=== PATIENT | female | born 1945 | race Caucasian/White ===

== ENCOUNTER 2019-07-17 15:02 | Outpatient (CLI) | payer MEDICARE, SELFPAY ==
--- NOTE | ~2019-07-17 | MM_ITS ---
EXAMINATION: MM screening didier BI w manda HISTORY: Screening mammogram TECHNIQUE: Craniocaudal and mediolateral oblique 3-D tomosynthesis images were obtained and synthetic 2-D images were generated. CAD analysis was submitted and interpreted. COMPARISON: Comparison to multiple prior studies sequentially, with oldest reviewed study dated 04/13. BREAST PARENCHYMAL COMPOSITION: The breasts are heterogeneously dense, which may obscure small masses . FINDINGS: There is no evidence of suspicious mass, calcification, or architectural distortion to sugg est malignancy in either breast. There has been no suspicious interval change. IMPRESSION: 1. No mammographic evidence of malignancy. 2. Recommend routine screening mammography in one year. BI-RADS Category 1: Negative Reviewed, dictated and finalized at location A. 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
== END 2019-07-17 15:03 | disposition home or self-care (01) ==
LOC: ANHIMG 15:07
PROVIDERS: PCP Family Medicine; Visit Provider Family Medicine
DX: Z12.31 Encounter for screening mammogram for malignant neoplasm of breast (principal)
CPT/HCPCS: 77063; 77067

== ENCOUNTER 2020-08-12 16:05 | Outpatient (CLI) | payer MEDICARE, SELFPAY ==
--- NOTE | ~2020-08-12 | XR_ITS ---
EXAMINATION: XR hand BI arthritis min 3V DATE: 08/12/2020 16:43 INDICATION: Arthritis. TECHNIQUE: 4 views of right hand and 4 views of left hand on a total of 7 radiographs were obtained. COMPARISON: Hand radiographs 11/07/2017 FINDINGS: RIGHT HAND: There is palmar dislocation of first and second proximal phalanges with respect to the me tacarpals. There is radial subluxation of first distal phalanx with respect to the proximal phalanx. No fracture. There is ankylosis of third proximal interphalangeal joint with K wires and figure-of-8 wire. There is radial subluxation of second and fifth distal phalanges with respect to the middle pha langes and ulnar subluxation of third distal phalanx with respect to the middle phalanx. There is mil d osteoarthritis of distal radioulnar joint and first carpometacarpal joint. There is mild osteoarthr itis of fourth metacarpophalangeal joint and some of the interphalangeal joints. There is severe arth ritis of first interphalangeal joint with erosions and osteophytes. There is severe osteoarthritis of second distal interphalangeal joint and moderate osteoarthritis of fifth distal interphalangeal join t. There are erosions at second proximal interphalangeal joint. LEFT HAND: There is palmar subluxation of first proximal phalanx with respect to the metacarpal. Ther e is radial subluxation of third distal phalanx with respect to the middle phalanx. There is severe o steoarthritis of first carpometacarpal joint and third distal interphalangeal joint. There is severe arthritis of triscaphe joint including erosions. There is mild osteoarthritis of some of the other in terphalangeal joints. IMPRESSION: 1. Dislocation of first and second metacarpophalangeal joints and left first metacarpophalangeal join t. 2. Ankylosis of right third interphalangeal joint. 3. 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 Reviewed, dictated and finalized at location A. IMPRESSION: 1. Dislocation of first and second metacarpophalangeal joints and left first me tacarpophalangeal joint. 2. Ankylosis of right third interphalangeal joint. 3. Polyarticular arthritis, likely a combination of rheumatoid arthritis or pso riatic arthritis and osteoarthritis.
[2020-08-12 18:30] LABS: Erythrocyte Sedimentation Rate 23 mm/hr (0-20)
[2020-08-12 19:03] LABS: CRP < 0.5 mg/dL (<1.0); Rheumatoid Factor < 8.6 IU/ML (<12); Uric Acid 4.6 mg/dL (2.5-7.5)
[2020-08-20 13:14] LABS: RNP Antibodies <1.0; SS-A <1.0; SS-B <1.0; Scleroderma 70 Antibody <1.0
[2020-08-20 20:48] LABS: Anti Cyclic Citrullinated Pept <16 Units (<20)
== END 2020-08-12 16:06 | disposition home or self-care (01) ==
PROVIDERS: PCP Family Medicine; Visit Provider Internal Medicine Rheumatology
DX: M19.90 Unspecified osteoarthritis, unspecified site (principal); M19.041 Primary osteoarthritis, right hand; M19.042 Primary osteoarthritis, left hand
CPT/HCPCS: 36415; 73130; 83520; 84550; 85652; 86038; 86039; 86140; 86200; 86225; 86235; 86430

== ENCOUNTER 2020-09-17 10:49 | Outpatient (CLI) | payer MEDICARE, SELFPAY ==
--- NOTE | ~2020-09-17 | MM_ITS ---
EXAMINATION: MM screening didier BI w manda HISTORY: Screening TECHNIQUE: Craniocaudal and mediolateral oblique 3-D tomosynthesis images were obtained and synthetic 2-D images were generated. CAD analysis was submitted and interpreted. COMPARISON: Comparison to multiple prior studies sequentially, with oldest reviewed study dated 06/06. BREAST PARENCHYMAL COMPOSITION: The breasts are extremely dense, which lowers the sensitivity of mamm ography. FINDINGS: There is no evidence of suspicious mass, calcification, or architectural distortion to sugg est malignancy in either breast. There has been no suspicious interval change. IMPRESSION: 1. No mammographic evidence of malignancy. 2. Recommend routine screening mammography in one year. BI-RADS Category 1: Negative Reviewed, dictated and finalized at location A.
== END 2020-09-17 10:50 | disposition home or self-care (01) ==
PROVIDERS: PCP Family Medicine; Visit Provider Family Medicine
DX: Z12.31 Encounter for screening mammogram for malignant neoplasm of breast (principal)
CPT/HCPCS: 77063; 77067

== ENCOUNTER 2020-12-10 10:09 | Outpatient (RCR) | payer MEDICARE, SELFPAY ==
[2020-10-05 12:39] LABS: Basophils Absolute Auto 0.1 K/mm3 (0.0-0.1); Basophils Percent Auto 0.8 % (0.2-1.2); Eosinophils Absolute Auto 0.1 K/mm3 (0-0.3); Eosinophils Percent Auto 1.1 % (0-4.4); Hemoglobin 12.5 g/dL (12.0-15.0); Immature Granulocyte Absolute 0.02 K/mm3 (0.00-0.031); Immature Granulocyte Percent A 0.3 % (0-0.5); Lymphocytes Absolute Auto 1.84 K/mm3 (0.9-3.2); Mean Corpuscular HGB Conc 32.1 g/dl (32-36); Mean Corpuscular Hemoglobin 31.6 pg (26-34); Mean Corpuscular Volume 98.7 fl (80-100); Mean Platelet Volume 11.2 fl (7.4-10.4); Monocytes Absolute Auto 0.6 K/mm3 (0.1-0.6); Monocytes Percent Auto 8.2 % (2.6-8.5); Neutrophils Absolute Auto 4.8 K/mm3 (1.3-6.7); Neutrophils Percent Auto 64.6 % (45.5-73.1); Platelet Count Result 183 k/mm3 (150-375); Red Blood Count 3.95 M/mm3 (4.2-5.4); Red Cell Distribution Width 12.2 % (11.5-14.5); White Blood Count 7.4 K/mm3 (4.5-10.0)
[2020-10-05 13:03] LABS: Anion Gap 8 mmol/L (8-16); Blood Urea Nitrogen 18 mg/dL (7-17); Calcium 8.9 mg/dL (8.4-10.2); Carbon Dioxide 27 mmol/L (22-30); Chloride 105 mmol/L (98-107); Estimated Glomerular Filt Rate > 60; Glucose 93 mg/dL (65-105); Potassium 4.2 mmol/L (3.4-5.0); Sodium 140 mmol/L (137-145)
[2020-10-05 15:06] LABS: Hepatitis B Surface Antigen Negative (Negative)
[2020-10-05 15:27] LABS: Hepatitis B Surface Anti Res Positive; Hepatitis C Virus Antibody Negative (Negative)
[2020-10-07 14:03] LABS: Hepatitis B DNA PCR <1.00 Log IU/mL; Hepatitis B DNA PCR <10 IU/mL; Hepatitis C RNA, Quant PCR <15 IU/mL
[2020-10-07 19:34] LABS: Hepatitis B Core Ab Total Nonreactive (Nonreactive)
[2020-10-07 23:39] LABS: NIL 0.01 IU/mL; Quantiferon TB Plus, 1T NEGATIVE (NEGATIVE); TB2-NIL 0.01 IU/mL
[2020-10-19 18:53] LABS: ALT 31 U/L (6-29); Alpha-2-Macroglobulin 257 mg/dL (106-279); Apolipoprotein A1 168 mg/dL (101-198); Fibrosis Score 0.36; Fibrosis Stage F1-F2; GGT 28 U/L (3-65); Haptoglobin 79 mg/dL (43-212); Necroinflammat Act Grade A0; Total Bilirubin 0.4 mg/dL (0.2-1.2)
[2020-12-10 10:33] LABS: Alanine Aminotransferase 22 U/L (4-35); Albumin Level 4.4 g/dL (3.5-5.1); Alkaline Phosphatase 59 U/L (38-126); Anion Gap 10 mmol/L (8-16); Aspartate Amino Transferase 31 U/L (14-36); Basophils Percent Auto 0.5 % (0.2-1.2); Bilirubin,Total 0.6 mg/dL (0.2-1.3); Blood Urea Nitrogen 20 mg/dL (7-17); Calcium 9.6 mg/dL (8.4-10.2); Carbon Dioxide 26 mmol/L (22-30); Chloride 101 mmol/L (98-107); Eosinophils Absolute Auto 0.1 K/mm3 (0-0.3); Eosinophils Percent Auto 0.6 % (0-4.4); Estimated Glomerular Filt Rate > 60; Glucose 89 mg/dL (65-110); Hematocrit 38.7 % (37.0-47.0); Hemoglobin 12.4 g/dL (12.0-15.0); Immature Granulocyte Absolute 0.01 K/mm3 (0.00-0.031); Immature Granulocyte Percent A 0.1 % (0-0.5); Lymphocytes Absolute Auto 1.77 K/mm3 (0.9-3.2); Lymphocytes Percent Auto 22.7 % (18.3-44.2); Mean Corpuscular Hemoglobin 31.3 pg (26-34); Mean Corpuscular Volume 97.7 fl (80-100); Mean Platelet Volume 10.5 fl (7.4-10.4); Monocytes Absolute Auto 0.6 K/mm3 (0.1-0.6); Neutrophils Absolute Auto 5.3 K/mm3 (1.3-6.7); Neutrophils Percent Auto 68.1 % (45.5-73.1); Platelet Count Result 210 k/mm3 (150-375); Potassium 4.1 mmol/L (3.4-5.0); Red Blood Count 3.96 M/mm3 (4.2-5.4); Red Cell Distribution Width 13.2 % (11.5-14.5); Sodium 137 mmol/L (137-145); White Blood Count 7.8 K/mm3 (4.5-10.0)
== END 2021-01-03 23:59 | disposition home or self-care (01) ==
LOC: ANHLAB 10:09
PROVIDERS: PCP Family Medicine; Visit Provider Internal Medicine Rheumatology
DX: Z51.81 Encounter for therapeutic drug level monitoring (principal); Z11.59 Encounter for screening for other viral diseases; Z79.899 Other long term (current) drug therapy
CPT/HCPCS: 36415; 80048; 80076; 81596; 85025; 86480; 86704; 86706; 86803; 87340; 87517; 87522

== ENCOUNTER 2021-08-16 09:14 | Outpatient (CLI) | payer MEDICARE, SELFPAY ==
[2021-08-16 09:48] LABS: Basophils Percent Auto 0.6 % (0.2-1.2); Eosinophils Absolute Auto 0.1 K/mm3 (0-0.3); Eosinophils Percent Auto 0.9 % (0-4.4); Hematocrit 37.7 % (37.0-47.0); Hemoglobin 12.1 g/dL (12.0-15.0); Immature Granulocyte Absolute 0.03 K/mm3 (0.00-0.031); Immature Granulocyte Percent A 0.4 % (0-0.5); Lymphocytes Absolute Auto 1.42 K/mm3 (0.9-3.2); Lymphocytes Percent Auto 21.3 % (18.3-44.2); Mean Corpuscular HGB Conc 32.1 g/dl (32-36); Mean Corpuscular Hemoglobin 32.4 pg (26-34); Mean Corpuscular Volume 100.8 fl (80-100); Monocytes Absolute Auto 0.6 K/mm3 (0.1-0.6); Monocytes Percent Auto 8.7 % (2.6-8.5); Neutrophils Absolute Auto 4.6 K/mm3 (1.3-6.7); Neutrophils Percent Auto 68.1 % (45.5-73.1); Platelet Count Result 239 k/mm3 (150-375); Red Blood Count 3.74 M/mm3 (4.2-5.4); Red Cell Distribution Width 13.7 % (11.5-14.5); White Blood Count 6.7 K/mm3 (4.5-10.0)
[2021-08-16 10:01] LABS: Alanine Aminotransferase 18 U/L (4-35); Albumin Level 4.4 g/dL (3.5-5.1); Alkaline Phosphatase 51 U/L (38-126); Anion Gap 5 mmol/L (8-16); Aspartate Amino Transferase 28 U/L (14-36); Bilirubin,Total 0.6 mg/dL (0.2-1.3); Blood Urea Nitrogen 15 mg/dL (7-17); Calcium 8.9 mg/dL (8.4-10.2); Carbon Dioxide 30 mmol/L (22-30); Chloride 103 mmol/L (98-107); Cholesterol 216 mg/dL (0-200); Estimated Glomerular Filt Rate > 60; Glucose 87 mg/dL (65-110); HDL Direct 53 mg/dL; Potassium 4.1 mmol/L (3.4-5.0); Sodium 138 mmol/L (137-145); Triglycerides 94 mg/dL (<150)
[2021-08-16 10:12] LABS: LDL Cholesterol Direct 113 mg/dL
[2021-08-16 10:22] LABS: Free T4 Free Thyroxine 1.05 ng/mL (0.78-2.19)
== END 2021-08-16 09:15 | disposition home or self-care (01) ==
LOC: ANHLAB 09:16
PROVIDERS: PCP Family Medicine; Visit Provider Physician Assistant
DX: F32.9 Major depressive disorder, single episode, unspecified (principal); M05.741 Rheumatoid arthritis with rheumatoid factor of right hand without organ or systems involvement; M05.742 Rheumatoid arthritis with rheumatoid factor of left hand without organ or systems involvement; E03.9 Hypothyroidism, unspecified; Z51.81 Encounter for therapeutic drug level monitoring; Z79.899 Other long term (current) drug therapy
CPT/HCPCS: 36415; 80053; 80061; 84439; 84443; 85025

== ENCOUNTER 2021-08-19 10:06 | Outpatient (CLI) | payer MEDICARE, SELFPAY ==
[2021-08-23 19:58] LABS: Red Blood Cell Folate 520 ng/mL RBC (>280)
== END 2021-08-19 10:07 | disposition home or self-care (01) ==
LOC: ANHLAB 10:07
PROVIDERS: PCP Family Medicine; Visit Provider Physician Assistant
DX: Z51.81 Encounter for therapeutic drug level monitoring (principal); Z79.899 Other long term (current) drug therapy
CPT/HCPCS: 36415; 82607; 82747

== ENCOUNTER 2021-10-06 09:53 | Outpatient (CLI) | payer MEDICARE, SELFPAY ==
--- NOTE | ~2021-10-06 | MM_ITS ---
EXAMINATION: MM screening didier BI w manda HISTORY: Screening mammogram TECHNIQUE: Craniocaudal and mediolateral oblique 3-D tomosynthesis images were obtained and synthetic 2-D images were generated. CAD analysis was submitted and interpreted. COMPARISON: No prior mammogram is available for comparison at this institution. BREAST PARENCHYMAL COMPOSITION: The breasts are extremely dense, which lowers the sensitivity of mamm ography. FINDINGS: There is no evidence of suspicious mass, calcification, or architectural distortion to sugg est malignancy in either breast. There has been no suspicious interval change. IMPRESSION: 1. No mammographic evidence of malignancy. 2. Recommend routine screening mammography in one year. BI-RADS Category 1: Negative Reviewed, dictated and finalized at location A.
--- NOTE | ~2021-10-06 | DEXA_ITS ---
Bone Density Report Name: KIP KAY Age: 75 Sex: Female Ethnicity: White Date of : 1945 Indication: osteopenia; parental hip fracture; height loss; rheumatoid arthritis; postmenopausal Referring Provider: KRISTEN HOFFMAN Study: Bone densitometry was performed. Exam Date: October 06, 2021 Accession number: [id number] Bone Density: Region BMD T-score Z-score Classification AP Spine(L1-L4) 0.999 -0.4 1.9 Normal Femoral Neck (Left) 0.665 -1.7 0.4 Osteopenia Total Hip (Left) 0.733 -1.7 0.0 Osteopenia Femoral Neck (Right) 0.643 -1.9 0.2 Osteopenia Total Hip (Right) 0.739 -1.7 0.1 Osteopenia Total Hip Mean 0.736 -1.7 0.1 Osteopenia World Health Organization criteria for BMD impression classify patients as: Normal (T-score at or above -1.0), Osteopenia (T-score between -1.0 and -2.5), or Osteoporosis (T-score at or below -2.5). 10-year Fracture Risk(1): Major Osteoporotic Fracture 24% Hip Fracture 13% Reported Risk Factors: [place] (), Neck BMD=0.643, BMI=21.1, parental fracture, rheumatoid arthritis (1) FRAX(R) Version 3.08. Fracture probability calculated for an untreated patient. Fracture probability may be lower if the patient has received treatment. Previous Exams: Region Exam Age BMD T-score BMD Change BMD Change Date g/cm2 vs Baseline vs Previous AP Spine (L1-L4) 10/06/2021 75 0.999 -0.4 0.093 (10.2%)# -0.002 (-0.2%) 08/05/2015 69 1.001 -0.4 0.095 (10.5%)* 0.095 (10.5%)* 03/25/2012 66 0.906 -1.3 Total Hip(Left) 10/06/2021 75 0.733 -1.7 0.016 (2.3%)# -0.043 (-5.6%) 08/05/2015 69 0.776 -1.4 0.059 (8.3%)* 0.059 (8.3%)* 03/25/2012 66 0.717 -1.8 Total Hip(Right) 10/06/2021 75 0.739 -1.7 -0.015 (-1.9%) -0.079 (-9.7%) 08/05/2015 69 0.818 -1.0 0.065 (8.6%)* 0.065 (8.6%)* 03/25/2012 66 0.754 -1.5 *Denotes significance at 95% confidence level, LSC for AP Spine = 0.022 g/cm2, LSC for Total Hip = 0.027 g/cm2 # Denotes dissimilar scan types or analysis methods Clinical Information Provided by Patient: Parent has had a hip fracture Has rheumatoid arthritis Has used the following medications: Vitamin D, Calcium Patient maximum height was 64 Menopause Age: 54 Onset of menses at age 15 Number of children 0 Impression: The patient has low bone mass, based on the Right Femoral Neck T-score. The patient has an estimated ten-year risk of hip fracture of 13
== END 2021-10-06 09:54 | disposition home or self-care (01) ==
PROVIDERS: PCP Family Medicine; Visit Provider Physician Assistant
DX: Z12.31 Encounter for screening mammogram for malignant neoplasm of breast (principal); M81.0 Age-related osteoporosis without current pathological fracture; M85.852 Other specified disorders of bone density and structure, left thigh; F32.9 Major depressive disorder, single episode, unspecified
CPT/HCPCS: 77063; 77067; 77080

== ENCOUNTER 2022-08-08 08:04 | Outpatient (CLI) | payer MEDICARE, SELFPAY ==
[2022-08-08 19:07] LABS: Basophils Absolute Auto 0.1 K/mm3 (0.0-0.1); Basophils Percent Auto 0.8 % (0.2-1.2); Eosinophils Percent Auto 0.6 % (0-4.4); Hematocrit 39.8 % (37.0-47.0); Hemoglobin 12.4 g/dL (12.0-15.0); Immature Granulocyte Absolute 0.02 K/mm3 (0.00-0.031); Immature Granulocyte Percent A 0.3 % (0-0.5); Lymphocytes Absolute Auto 2.05 K/mm3 (0.9-3.2); Lymphocytes Percent Auto 31.8 % (18.3-44.2); Mean Corpuscular HGB Conc 31.2 g/dl (32-36); Mean Corpuscular Hemoglobin 31.3 pg (26-34); Mean Corpuscular Volume 100.5 fl (80-100); Mean Platelet Volume 10.6 fl (7.4-10.4); Monocytes Absolute Auto 0.5 K/mm3 (0.1-0.6); Monocytes Percent Auto 7.8 % (2.6-8.5); Neutrophils Absolute Auto 3.8 K/mm3 (1.3-6.7); Neutrophils Percent Auto 58.7 % (45.5-73.1); Platelet Count Result 266 k/mm3 (150-375); Red Blood Count 3.96 M/mm3 (4.2-5.4); Red Cell Distribution Width 13.8 % (11.5-14.5); White Blood Count 6.5 K/mm3 (4.5-10.0)
[2022-08-08 19:09] LABS: Alanine Aminotransferase 22 U/L (6-35); Albumin Level 4.5 g/dL (3.5-5.1); Alkaline Phosphatase 60 U/L (38-126); Anion Gap 10 mmol/L (8-16); Aspartate Amino Transferase 26 U/L (14-36); Bilirubin,Total 0.6 mg/dL (0.2-1.3); Blood Urea Nitrogen 12 mg/dL (7-17); Calcium 8.8 mg/dL (8.4-10.2); Carbon Dioxide 26 mmol/L (22-30); Chloride 103 mmol/L (98-107); Cholesterol 225 mg/dL (0-200); Estimated Glomerular Filt Rate > 60; Glucose 81 mg/dL (65-110); HDL Direct 45 mg/dL; Potassium 4.3 mmol/L (3.4-5.0); Sodium 139 mmol/L (137-145); Triglycerides 112 mg/dL (<150)
[2022-08-08 19:20] LABS: LDL Cholesterol Direct 136 mg/dL
[2022-08-08 19:29] LABS: Free T4 Free Thyroxine 1.15 ng/mL (0.78-2.19)
== END 2022-08-08 08:05 | disposition home or self-care (01) ==
LOC: ANHGOSHLAB 08:05
PROVIDERS: PCP Emergency Medicine; Visit Provider Emergency Medicine
DX: E03.9 Hypothyroidism, unspecified (principal); Z79.899 Other long term (current) drug therapy
CPT/HCPCS: 36415; 80053; 80061; 84439; 84443; 85025

== ENCOUNTER 2022-12-14 10:19 | Outpatient (CLI) | payer MEDICARE, SELFPAY ==
--- NOTE | ~2022-12-14 | MM_ITS ---
EXAMINATION: MM screening didier BI w manda HISTORY: Screening mammogram TECHNIQUE: Craniocaudal and mediolateral oblique 3-D tomosynthesis images were obtained and synthetic 2-D images were generated. Bilateral rotated lateral CC views. CAD analysis was submitted and interp reted. COMPARISON: 10/06/2021, 09/17/2020, 07/17/2019 bilateral screening mammogram examinations BREAST PARENCHYMAL COMPOSITION: The breasts are extremely dense, which lowers the sensitivity of mamm ography. FINDINGS: There is no evidence of suspicious mass, calcification, or architectural distortion to sugg est malignancy in either breast. There has been no suspicious interval change. IMPRESSION: 1. No mammographic evidence of malignancy. 2. Recommend routine screening mammography in one year. BI-RADS Category 1: Negative Reviewed, dictated and finalized at location A.
== END 2022-12-14 10:20 | disposition home or self-care (01) ==
PROVIDERS: PCP Emergency Medicine; Visit Provider Emergency Medicine
DX: Z12.31 Encounter for screening mammogram for malignant neoplasm of breast (principal)
CPT/HCPCS: 77063; 77067

== ENCOUNTER 2023-10-02 07:52 | Outpatient (CLI) | payer MEDICARE, SELFPAY ==
[2023-10-02 18:45] LABS: Basophils Absolute Auto 0.1 K/mm3 (0.0-0.1); Basophils Percent Auto 0.8 % (0.2-1.2); Eosinophils Absolute Auto 0.1 K/mm3 (0-0.3); Eosinophils Percent Auto 0.9 % (0-4.4); Hematocrit 41.1 % (37.0-47.0); Immature Granulocyte Absolute 0.02 K/mm3 (0.00-0.031); Immature Granulocyte Percent A 0.3 % (0-0.5); Lymphocytes Absolute Auto 1.61 K/mm3 (0.9-3.2); Lymphocytes Percent Auto 24.9 % (18.3-44.2); Mean Corpuscular HGB Conc 31.6 g/dl (32-36); Mean Corpuscular Hemoglobin 31.7 pg (26-34); Mean Corpuscular Volume 100.2 fl (80-100); Mean Platelet Volume 10.3 fl (7.4-10.4); Monocytes Absolute Auto 0.5 K/mm3 (0.1-0.6); Monocytes Percent Auto 7.6 % (2.6-8.5); Neutrophils Absolute Auto 4.2 K/mm3 (1.3-6.7); Neutrophils Percent Auto 65.5 % (45.5-73.1); Platelet Count Result 240 k/mm3 (150-375); Red Cell Distribution Width 12.9 % (11.5-14.5); White Blood Count 6.5 K/mm3 (4.5-10.0)
[2023-10-02 18:54] LABS: Alanine Aminotransferase 24 U/L (6-35); Albumin Level 4.5 g/dL (3.5-5.1); Alkaline Phosphatase 50 U/L (38-126); Anion Gap 5 mmol/L (4-12); Aspartate Amino Transferase 43 U/L (14-36); Bilirubin,Total 0.7 mg/dL (0.2-1.3); Blood Urea Nitrogen 23 mg/dL (7-17); Calcium 9.2 mg/dL (8.4-10.2); Carbon Dioxide 28 mmol/L (22-30); Chloride 105 mmol/L (98-107); Cholesterol 218 mg/dL (0-200); Estimated Glomerular Filt Rate > 60; Glucose 77 mg/dL (65-110); HDL Direct 53 mg/dL; Potassium 4.4 mmol/L (3.4-5.0); Sodium 138 mmol/L (137-145); Triglycerides 87 mg/dL (<150)
[2023-10-02 19:04] LABS: LDL Cholesterol Direct 133 mg/dL
[2023-10-02 19:27] LABS: Total Triiodothyronine (T3) 1.03 NG/ML (0.97-1.69)
[2023-10-02 19:37] LABS: Free T4 Free Thyroxine 0.98 ng/mL (0.78-2.19)
== END 2023-10-02 07:53 | disposition home or self-care (01) ==
PROVIDERS: PCP Emergency Medicine; Visit Provider Emergency Medicine
DX: E03.9 Hypothyroidism, unspecified (principal); E78.5 Hyperlipidemia, unspecified; Z79.899 Other long term (current) drug therapy
CPT/HCPCS: 36415; 80053; 80061; 84439; 84443; 84480; 85025

== ENCOUNTER 2024-01-09 11:30 | Outpatient (CLI) | payer MEDICARE, SELFPAY ==
--- NOTE | ~2024-01-09 | MM_ITS ---
EXAMINATION: MM screening didier BI w manda HISTORY: Screening TECHNIQUE: Craniocaudal and mediolateral oblique 3-D tomosynthesis images were obtained and synthetic 2-D images were generated. CAD analysis was submitted and interpreted. COMPARISON: Comparison to multiple prior studies sequentially, with oldest reviewed study dated 10/2018. BREAST PARENCHYMAL COMPOSITION: Dense: The breasts are extremely dense, which lowers the sensitivity of mammography. FINDINGS: There is no evidence of suspicious mass, calcification, or architectural distortion to sugg est malignancy in either breast. There has been no suspicious interval change. IMPRESSION: 1. No mammographic evidence of malignancy. 2. Recommend routine screening mammography in one year. BI-RADS Category 1: Negative Reviewed, dictated and finalized at location B.
== END 2024-01-09 11:31 | disposition home or self-care (01) ==
PROVIDERS: PCP Emergency Medicine; Visit Provider Emergency Medicine
DX: Z12.31 Encounter for screening mammogram for malignant neoplasm of breast (principal)
CPT/HCPCS: 77063; 77067

== ENCOUNTER 2024-07-31 08:12 | Outpatient (CLI) | payer MEDICARE, SELFPAY ==
--- OUTSIDE RECORDS SUMMARY | 2024-07-31 08:18 | XMS_ITS | Clinical Summary ---
Author Organization [facility] [employer] Address [address] 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 This disclosure is being madepursuant to the Care Everywhere program and may not contain all information available regarding this patient. Last updated 18.[facility] [employer] Allergies No known active allergies Medications * Be aware that medications may not be up to date on this document. Alwaysverify current medications with the patient. Medication Sig Dispensed Refills Start Date End Date Status methotrexate 2.5 MG tablet Take 1 (one) tablet by mouth every 7 days Active folic acid (Folvite) 1 MG tablet Take 1 (one) tablet by mouth once daily Active Active Problems Problem Noted Date Diagnosed Date Fall 08/30/2023 Scalp laceration 08/30/2023 Immunizations Name Administration Dates Next Due TDAP (7yrs+) 08/30/2023(Deferred: Patient Ref used - pt says up to date) Social History Tobacco Use Types Packs/Day Years Used Date Smoking Tobacco: Never Assessed Sex and Gender Information Value Date Recorded Sex Assigned at Not on file Gender Identity Not on file Sexual Orientation Not on file Last Filed Vital Signs Vital Sign Reading Time Taken Comments Blood Pressure 132/86 08/30/2023 8:00 PM CDT Pulse 109 08/30/2023 8:00 PM CDT Temperature 36.8 C (98.2 F) 08/30/2023 6:32 PM CDT Respiratory Rate 11 08/30/2023 8:00 PM CDT Oxygen Saturation 96% 08/30/2023 8:00 PM CDT Inhaled Oxygen Concentration - - Weight - - Height - - Body Mass Index - - Plan of Treatment Health Maintenance Due Date Last Done Comments BONE DENSITY TESTING 1945 HEPATITIS C SCREENING 11/06/1965 DTAP/TDAP/TD VACCINES (1 - Tdap) 11/10/1966 PNEUMOCOCCAL VACCINE 50+ (1 of 1 - PCV) 11/10/1997 ZOSTER VACCINE (1 of 2) 11/10/1997 Respiratory Syncytial Virus (RSV) Vaccine Pt: or over 60 yrs (1 - 1-dose 75+ series) 11/10/2022 COVID-19 VACCINE (2023-2 5 season) 2024 INFLUENZA VACCINE (#1) 2024 DEPRESSION SCREENING 05/14/2024 MEDICARE AWV CALENDAR YEAR 2024 HEPATITIS B VACCINE Aged Out No longe r eligible based on patient's age to complete this topic HIB VACCINE Aged Out No longer eligi ble based on patient's age to complete this topic HPV VACCINE Aged Out No longer eligi ble based on patient's age to complete this topic MENINGOCOCCAL (Group B) VACC INE SHARED DECISION-MAKING Aged Out No longer eligibl e based on patient's age to complete this topic MENINGOCOCCAL GROUPS A/C/Y/W VACCINE Aged Out No longer eligible b ased on patient's age to complete this topic
[2024-07-31 14:47] LABS: Alanine Aminotransferase 26 U/L (6-35); Albumin Level 4.5 g/dL (3.5-5.1); Alkaline Phosphatase 57 U/L (38-126); Anion Gap 8 mmol/L (4-12); Aspartate Amino Transferase 46 U/L (14-36); Bilirubin,Total 0.7 mg/dL (0.2-1.3); Blood Urea Nitrogen 19 mg/dL (7-17); Calcium 9.3 mg/dL (8.4-10.2); Carbon Dioxide 28 mmol/L (22-30); Chloride 103 mmol/L (98-107); Cholesterol 235 mg/dL (0-200); Estimated Glomerular Filt Rate > 60; Glucose 78 mg/dL (65-110); HDL Direct 57 mg/dL; Potassium 4.5 mmol/L (3.4-5.0); Sodium 139 mmol/L (137-145); Triglycerides 92 mg/dL (<150)
[2024-07-31 15:02] LABS: LDL Cholesterol Direct 134 mg/dL
[2024-07-31 16:10] LABS: Free T4 Free Thyroxine 1.11 ng/dL (0.78-2.19)
== END 2024-07-31 08:13 | disposition home or self-care (01) ==
LOC: ANHGOSHLAB 08:15
PROVIDERS: PCP Family Medicine; Visit Provider Nurse Practitioner
DX: E03.9 Hypothyroidism, unspecified (principal); E78.5 Hyperlipidemia, unspecified
CPT/HCPCS: 36415; 80053; 80061; 84439; 84443

== ENCOUNTER 2024-09-25 18:56 | Emergency (ER) | payer MEDICARE, SELFPAY ==
--- OUTSIDE RECORDS SUMMARY | 2024-09-25 18:58 | XMS_ITS | Clinical Summary ---
Author Organization [facility] [employer] Address [address] [place] [address] Care Team Providers Care Jack Spinner Name Role Phone Unavailable Primary Care Provider Unavailabl e Source Comments [facility],non-owned Affiliates and Associated Physician Practices is amultiple site organization consisting of ambulatory clinics and hospital sitesin [place], [place], [place] and [place]. This disclosure is being madepursuant to the Care Everywhere program and may not contain all information available regarding this patient. Last updated 18.[facility] [employer] Allergies No known active allergies Medications * Be aware that medications may not be up to date on this document. Alwaysverify current medications with the patient. methotrexate 2.5 MG tablet Take 1 (one) tablet by mouth every 7 days Active folic acid (Folvite) 1 MG tablet Take 1 (one) tablet by mouth once daily Active Active Problems Problem Noted Date Diagnosed Date Fall 08/30/2023 Scalp laceration 08/30/2023 Immunizations Immunization Administration Dates Next Due TDAP (7yrs+) 08/30/2023(Deferred: Patient Ref used - pt says up to date) Social History Tobacco Use Types Packs/Day Years Used Date Smoking Tobacco: Never Assessed Comments Unknown Sex and Gender Information Value Date Recorded Sex Assigned at Not on file Legal Sex Female 6:32 PM CDT Gender Identity Not on file Sexual Orientation [...] - 1-dose 75+ series) 11/10/2022 COVID-19 VACCINE ( - 2023-2 5 season) 2024 DEPRESSION SCREENING 05/14/2024 MEDICARE AWV CALENDAR YEAR 2024 INFLUENZA VACCINE (Season Ended) 2025 HEPATITIS B VACCINE Aged Out No longe [...] on patient's age to [place] [address] AETNA MEDICARE ADV
[2024-09-25 19:16] VITALS: BP 147/93; PULSE 82; RESP 20; TEMP 36.7; O2SAT 100
--- NOTE | 2024-09-25 20:34 | ED.GENADULT ---
HPI - General Adult General Chief complaint: Skin/Abscess/Foreign Body Stated complaint: Bleeding lower lip -no known injury Time Seen by Provider: 09/25/24 20:00 History of Present Illness HPI narrative: Patient is a 78-year-old female who presents ER with bleeding from her left lower lip. She was at a local [employer] and had eaten some bread but does not recall biting her lip. She started bleeding and it would not stop. She is not on blood thinning medication. No difficulty breathing or swallowing. Related Data Home Medications Medication Instructions Recorded Confirmed Last Taken Type calcium carbonate (Calcium 600) 600 mg PO DAILY 01/24/22 08/01/24 Unknown History cholecalciferol (vitamin D3) 50 50 mcg PO DAILY 01/24/22 08/01/24 Unknown History mcg (2,000 unit) capsule (Vitamin D3) ferrous sulfate 325 mg (65 mg 325 mg PO DAILY 01/24/22 08/01/24 Unknown History iron) tablet magnesium 250 mg tablet 250 mg PO DAILY 01/24/22 08/01/24 Unknown History omega 2-tmg-pzb-fish oil 1,200 mg cap PO 01/24/22 08/01/24 Unknown History (144 mg-216 mg) capsule (Fish Oil) omeprazole 20 mg tablet,delayed 20 mg PO DAILY 01/24/22 08/01/24 Unknown History release lactobacillus combination no.4 3 6,000 mmu cells PO DAILY 08/01/24 08/01/24 Unknown History billion cell capsule (Probiotic) mecobalamin (vitamin B12) 500 mcg mcg PO 08/01/24 08/01/24 Unknown History chewable tablet multivitamin 1 tablet PO DAILY 08/01/24 08/01/24 Unknown History progesterone micronized 100 mg 0.5 mg PO QAM 08/01/24 08/01/24 Unknown History capsule Allergies Allergy/AdvReac Type Severity Reaction Status Date / Time No Known Allergies Allergy Verified 08/01/24 10:47 Review of Systems Constitutional: Constitutional: Reports no additional constitutional complaints ENT: Reports system reviewed and no additional complaints, except as documented [facility] Past Medical History Medical History (Updated 09/25/24 @ 20:45 by Tu Ojeda MD) Rheumatoid arthritis involving both hands with positive rheumatoid factor Hypothyroidism Hyperlipidemia Major depressive disorder, single episode, unspecified Family History Family History Father Diabetes mellitus Hypertension Family history of cardiovascular disease Mother Hypertension Family history of cardiovascular disease Grandparent Cerebrovascular accident Social History Social History Social History: Caffeine-coffee Smoking status: Former smoker Alcohol intake: current Alcohol use details: occasionally Substance use: never Substance use type: does not use Lack of Transportation: No Lack of Food: Never True Current Housing: I Have Housing Concerned About Future Housing: No Difficulty Paying Gas/Electric Bills: No Difficulty Paying for Meds: No Currently Unemployed: No Education: Bachelor's Degree Difficulty w/ Childcare or Family Care: No Exam Narrative: GENERAL: Well-appearing, well-nourished, and in no acute distress. HEAD: Normocephalic, atraumatic. ENT: Mucous membranes moist. A left lower lip intraoral aspect with 6 cm healing abrasion. Normal dentition without bleeding or abscess. NECK: Supple. NEURO: Alert and oriented x3. PSYCH: Normal mood and affect. Course Course Emergency Course: Patient given reassurance. No bleeding this time. Discharge home. Vital Signs Vital signs: Vital Signs Temperature 98.0 F 09/25/24 19:16 Pulse Rate 82 09/25/24 19:16 Respiratory Rate 09/25/24 19:16 Blood Pressure 147/93 H 09/25/24 19:16 Pulse Oximetry 100 09/25/24 19:16 Oxygen Delivery Room Air 09/25/24 19:16 Temperature 98.0 F 09/25/24 19:16 Pulse Rate 82 09/25/24 19:16 Respiratory Rate 09/25/24 19:16 Blood Pressure 147/93 H 09/25/24 19:16 Pulse Oximetry 100 09/25/24 19:16 Oxygen Delivery Room Air 09/25/24 19:16 Medical Decision Making Vital Signs Vital Signs: Vital Signs Temperature 98.0 F 09/25/24 19:16 Pulse Rate 82 09/25/24 19:16 Respiratory Rate 09/25/24 19:16 Blood Pressure 147/93 H 09/25/24 19:16 Pulse Oximetry 100 09/25/24 19:16 Oxygen Delivery Room Air 09/25/24 19:16 Temperature 98.0 F 09/25/24 19:16 Pulse Rate 82 09/25/24 19:16 Respiratory Rate 20 09/25/24 19:16 Blood Pressure 147/93 H 09/25/24 19:16 Pulse Oximetry 100 09/25/24 19:16 Oxygen Delivery Room Air 09/25/24 19:16 Discharge Plan Discharge Clinical Impression: Abrasion of lip Patient Disposition: Home Condition: Stable Instructions: Abrasion (ED) Additional Instructions: Return ER if you suffered a new injury, you have recurrence of bleeding, you have additional concerns. Patient Language: Occitan Prescriptions: No Action multivitamin Tablet 1 tablet PO DAILY Probiotic 3 billion cell capsule 6,000 mmu cells PO DAILY Rx Instructions: administer with a meal mecobalamin (vitamin B12) 500 mcg tablet,chewable PO progesterone micronized 100 mg capsule 0.5 mg PO QAM Rx Instructions: before bed atorvastatin [Lipitor] 20 mg tablet 20 mg PO QHS Qty: 90 1RF oxybutynin chloride 5 mg tablet extended release 24hr 5 mg PO DAILY Qty: 90 1RF calcium carbonate [Calcium 600] 600 mg calcium (1,500 mg) tablet 600 mg PO DAILY omega 4-qtr-doz-fish oil [Fish Oil] 1,200 (144-216) mg capsule PO ferrous sulfate 325 mg (65 mg iron) tablet 325 mg PO DAILY magnesium 250 mg tablet 250 mg PO DAILY omeprazole 20 mg tablet,delayed release (DR/EC) 20 mg PO DAILY cholecalciferol (vitamin D3) [Vitamin D3] 50 mcg (2,000 unit) capsule 50 mcg PO DAILY folic acid 1 mg tablet 1 mg PO DAILY Qty: 90 3RF alendronate 35 mg tablet 35 mg PO WEEKLY Qty: 12 3RF mometasone 0.1 % cream 1 applic topical DAILY PRN (Reason: rash) Qty: 15 0RF citalopram 20 mg tablet See Rx Instructions .ROUTE .COMPLEX Qty: 90 1RF Dose Instruction: TAKE 1 TABLET DAILY Rx Instructions: TAKE 1 TABLET DAILY levothyroxine 75 mcg tablet See Rx Instructions .ROUTE .COMPLEX Qty: 90 1RF Dose Instruction: TAKE 1 TABLET BY MOUTH DAILY Rx Instructions: TAKE 1 TABLET BY MOUTH DAILY methotrexate sodium 2.5 mg tablet See Rx Instructions .ROUTE .COMPLEX Qty: 65 1RF Dose Instruction: TAKE 5 TABLETS BY MOUTH ONCE WEEKLY Rx Instructions: TAKE 5 TABLETS BY MOUTH ONCE WEEKLY Follow-up/Referrals: Dee Sam, [Primary Care Provider] - 1 Week
--- OUTSIDE RECORDS SUMMARY | 2024-09-25 20:49 | XMS_ITS | Clinical Summary ---
Author Organization [facility] [employer] Address [address] [place] [address] Care Team Providers Care Leather Belt Loop Cutter Name Role Phone Unavailable Primary Care Provider Unavailabl e Source Comments [facility],non-owned Affiliates and Associated Physician Practices is amultiple site organization consisting of ambulatory clinics and hospital sitesin [place], [place], [place] and [place]. This disclosure is being madepursuant to the Care Everywhere program and may not contain all information available regarding this patient. Last updated 18.[facility] [employer] Allergies No known active allergies Medications * [...] patient's age to complete [place] [address] AETNA MEDICARE ADV
== END 2024-09-25 21:16 | disposition home or self-care (01) ==
PROVIDERS: Emergency Provider Emergency Medicine; PCP Family Medicine
DX: S00.511A Abrasion of lip, initial encounter (principal); E03.9 Hypothyroidism, unspecified; E78.5 Hyperlipidemia, unspecified; M05.841 Other rheumatoid arthritis with rheumatoid factor of right hand; M05.842 Other rheumatoid arthritis with rheumatoid factor of left hand; Z87.891 Personal history of nicotine dependence; X58.XXXA Exposure to other specified factors, initial encounter
CPT/HCPCS: 99281

== ENCOUNTER 2025-01-07 11:26 | Outpatient (CLI) | payer MEDICARE, SELFPAY ==
--- OUTSIDE RECORDS SUMMARY | 2025-01-07 11:44 | XMS_ITS | Clinical Summary ---
Author Organization [facility] [employer] Address [address] [place] [address] Care Team Providers Care Glass Rolling Machine Operator Name Role Phone Unavailable Primary Care Provider Unavailabl e Source Comments [facility],non-owned Affiliates and Associated Physician Practices is amultiple site organization consisting of ambulatory clinics and hospital sitesin [place], [place], [place] and [place]. This disclosure is being madepursuant to the Care Everywhere program and may not contain all information available regarding this patient. Last updated 18.[facility] [employer] Allergies No known active allergies Medications * [...] MEDICARE AWV CALENDAR YEAR 2024 INFLUENZA VACCINE (#1) 2025 HEPATITIS B VACCINE Aged Out No [...] patient's age to complete [place] [address] AETNA MEDICARE ADV
[2025-01-07 14:17] LABS: Hematocrit 39.1 % (37.0-47.0); Hemoglobin 12.5 g/dL (12.0-15.0); Mean Corpuscular HGB Conc 32.0 g/dl (32-36); Mean Corpuscular Hemoglobin 31.3 pg (26-34); Mean Corpuscular Volume 97.8 fl (80-100); Platelet Count Result 242 k/mm3 (150-375); Red Blood Count 4.00 M/mm3 (4.2-5.4); White Blood Count 7.9 K/mm3 (4.5-10.0)
[2025-01-07 16:09] LABS: Alanine Aminotransferase 51 U/L (6-35); Albumin Level 4.4 g/dL (3.5-5.1); Alkaline Phosphatase 61 U/L (38-126); Anion Gap 7 mmol/L (4-12); Aspartate Amino Transferase 51 U/L (14-36); Bilirubin,Total 0.4 mg/dL (0.2-1.3); Blood Urea Nitrogen 22 mg/dL (7-17); Calcium 9.3 mg/dL (8.4-10.2); Carbon Dioxide 28 mmol/L (22-30); Chloride 101 mmol/L (98-107); Cholesterol 160 mg/dL (0-200); Estimated Glomerular Filt Rate > 60; Glucose 94 mg/dL (65-110); HDL Direct 49 mg/dL; Potassium 4.8 mmol/L (3.4-5.0); Sodium 136 mmol/L (137-145); Total Protein 7.4 g/dL (6.3-8.2); Triglycerides 76 mg/dL (<150)
[2025-01-07 16:31] LABS: Free T4 Free Thyroxine 1.18 ng/dL (0.78-2.19)
[2025-01-07 16:41] LABS: Thyroid Stimulating Hormone 0.194 uIU/mL (0.465-4.680)
== END 2025-01-07 11:27 | disposition home or self-care (01) ==
LOC: ANHGOSHLAB 11:27
PROVIDERS: PCP Family Medicine; Visit Provider Family Medicine
DX: E03.9 Hypothyroidism, unspecified (principal); E78.5 Hyperlipidemia, unspecified; Z79.899 Other long term (current) drug therapy
CPT/HCPCS: 36415; 80053; 80061; 84439; 84443; 85027

== ENCOUNTER 2025-01-20 08:20 | Outpatient (CLI) | payer MEDICARE, SELFPAY ==
--- OUTSIDE RECORDS SUMMARY | 2025-01-20 08:46 | XMS_ITS | Clinical Summary ---
Author Organization [facility] [employer] Address [address] [place] [address] Care Team Providers Care Mother Superior Name Role Phone Unavailable Primary Care Provider Unavailabl e Source Comments [facility],non-owned Affiliates and Associated Physician Practices is amultiple site organization consisting of ambulatory clinics and hospital sitesin [place], [place], [place] and [place]. This disclosure is being madepursuant to the Care Everywhere program and may not contain all information available regarding this patient. Last updated 18.[facility] [employer] Allergies No known active allergies Medications * [...] patient's age to complete [place] [address] AETNA MEDICARE ADV
[2025-01-20 13:32] LABS: Free T4 Free Thyroxine 1.04 ng/dL (0.78-2.19)
[2025-01-20 13:48] LABS: Thyroid Stimulating Hormone 1.410 uIU/mL (0.465-4.680)
== END 2025-01-20 08:21 | disposition home or self-care (01) ==
LOC: ANHGOSHLAB 08:20
PROVIDERS: PCP Family Medicine; Visit Provider Family Medicine
DX: E78.5 Hyperlipidemia, unspecified (principal); E03.9 Hypothyroidism, unspecified
CPT/HCPCS: 36415; 84439; 84443